=== PATIENT | female | born 1965 | race Caucasian/White ===

== ENCOUNTER 2017-03-10 01:42 | Inpatient (IN) | payer OTHER ==
[2017-03-10] VITALS (10 sets, daily range): BP systolic 102–128; BP diastolic 47–74; PULSE 65–74; RESP 10–20; TEMP 97.9–98.8; O2SAT 95–99
[~2017-03-10] VITALS: Ht 175.3 cm; Wt 87.5 kg
[2017-03-10] MEDS ORDERED: SODIUM CHLOR 0.9% 1000 ML INJ 1,000 ML IV SCH (02:09)
--- NOTE | 2017-03-10 02:13 | PD ---
HPI . Left lower quadrant pain Chief Complaint: left lower quadrant pain Time Seen by Provider: 01:59 Travel History International Travel<30 days: No Contact w/Intl Traveler<30days: No Traveled to known affect area: No History of Present Illness HPI The patient is a 51-year-old female with a history of diverticulitis who complains of the same pain that she has had with her previous episodes of diverticulitis since noon yesterday. She does have nausea without vomiting and diarrhea. She denies any blood in the stool. She denies any fever. She does not have a local primary care physician, she just moved from [place]. Her only abdominal surgery was cholecystectomy, she still has her appendix. [facility] Social History Tobacco Use: No Allergies-Medications (Allergen,Severity, Reaction): Coded Allergies: Demerol (Verified Allergy, Severe, Nausea/Vomiting, 03/10/17) Reported Meds & Prescriptions Reported Meds & Active Scripts Active Review of Systems Except as stated in HPI: all other systems reviewed are Neg Physical Exam Narrative GENERAL: The patient is alert, oriented 3 in moderate to severe distress with her left lower quadrant abdominal pain. Her vital signs are normal. SKIN: Focused skin assessment warm/dry. HEAD: Atraumatic. Normocephalic. EYES: Pupils equal and round. No scleral icterus. No injection or drainage. ENT: No nasal bleeding or discharge. Mucous membranes pink and moist. NECK: Trachea midline. No JVD. CARDIOVASCULAR: Regular rate and rhythm. No murmur appreciated. RESPIRATORY: No accessory muscle use. Clear to auscultation. Breath sounds equal bilaterally. GASTROINTESTINAL: Abdomen soft except for the left lower quadrant which shows some guarding, with exquisite tenderness in the left lower quadrant to direct palpation, nondistended. Hepatic and splenic margins not palpable. MUSCULOSKELETAL: No obvious deformities. No clubbing. No cyanosis. No edema. NEUROLOGICAL: Awake and alert. No obvious cranial nerve deficits. Motor grossly within normal limits. Normal speech. PSYCHIATRIC: Appropriate mood and affect; insight and judgment normal. Data Data Last Documented VS Vital Signs Date Time Temp Pulse Resp B/P Pulse Ox O2 Delivery O2 Flow Rate FiO2 03/10/17 03:29 17 03/10/17 03:12 73 125/57 98 Room Air 03/10/17 01:50 98.2 Orders Complete Blood Count With Diff (03/10/17 02:09) Comprehensive Metabolic Panel (03/10/17 02:09) Lipase (03/10/17 02:09) Ct Abd/Pel W Iv Contrast(Rout) (03/10/17 02:09) Iv Access Insert/Monitor (03/10/17 02:09) Ecg Monitoring (03/10/17 02:09) Oximetry (03/10/17 02:09) Sodium Chloride 0.9% Flush (Ns Flush) (03/10/17 02:15) Morphine Inj (Morphine Inj) (03/10/17 02:15) Ondansetron Inj (Zofran Inj) (03/10/17 02:15) Sodium Chlor 0.9% 1000 Ml Inj (Ns 1000 M (03/10/17 02:09) Sodium Chloride 0.9% Flush (Ns Flush) (03/10/17 02:15) Iohexol 350 Inj (Omnipaque 350 Inj) (03/10/17 02:58) Morphine Inj (Morphine Inj) (03/10/17 03:15) Ondansetron Inj (Zofran Inj) (03/10/17 03:15) Metronidazole 500 Mg Inj (Flagyl 500 Mg (03/10/17 03:15) Levofloxacin 750 Mg Premix Inj (Levaquin (03/10/17 03:15) Admit Order (Ed Use Only) (03/10/17 03:29) Ciprofloxacin 400 Mg Premix (Cipro 400 M (03/10/17 18:00) Metronidazole 500 Mg Inj (Flagyl 500 Mg (03/10/17 14:00) Admit To Inpatient (03/10/17 ) Vital Signs (Adult) Q4H (03/10/17 03:29) Activity Oob Ad Zuly (03/10/17 03:29) Intake + Output ELEONORA.QSHIFT (03/10/17 03:29) Sodium Chlor 0.9% 1000 Ml Inj (Ns 1000 M (03/10/17 03:29) Sodium Chloride 0.9% Flush (Ns Flush) (03/10/17 03:30) Sodium Chloride 0.9% Flush (Ns Flush) (03/10/17 09:00) Ondansetron Inj (Zofran Inj) (03/10/17 03:30) Comprehensive Metabolic Panel (03/11/17 06:00) Complete Blood Count With Diff (03/11/17 06:00) Scd Bilateral/Knee High ELEONORA.BID (03/10/17 03:29) Estuardo Bilateral/Knee High ELEONORA.QSHIFT (03/10/17 03:29) Acetaminophen (Tylenol) (03/10/17 03:30) Acetamin-Hydrocod 325-5 Mg ([place] 5-325 (03/10/17 03:30) Morphine Inj (Morphine Inj) (03/10/17 03:30) Docusate Sodium-Senna (Ema-Colace) (03/10/17 09:00) Magnesium Hydroxide Liq (Milk Of Magnesi (03/10/17 03:30) Sennosides (Senokot) (03/10/17 03:30) Bisacodyl Supp (Dulcolax Supp) (03/10/17 03:30) Lactulose Liq (Lactulose Liq) (03/10/17 03:30) Inpatient Certification (03/10/17 ) Labs Laboratory Tests Test 03/10/17 02:16 White Blood Count 11.9 TH/MM3 Red Blood Count 4.47 MIL/MM3 Hemoglobin 13.8 GM/DL Hematocrit 41.4 % Mean Corpuscular Volume 92.5 FL Mean Corpuscular Hemoglobin 30.8 PG Mean Corpuscular Hemoglobin 33.3 % Concent Red Cell Distribution Width 12.6 % Platelet Count 240 TH/MM3 Mean Platelet Volume 8.4 FL Neutrophils (%) (Auto) 78.1 % Lymphocytes (%) (Auto) 11.7 % Monocytes (%) (Auto) 8.0 % Eosinophils (%) (Auto) 2.0 % Basophils (%) (Auto) 0.2 % Neutrophils # (Auto) 9.3 TH/MM3 Lymphocytes # (Auto) 1.4 TH/MM3 Monocytes # (Auto) 1.0 TH/MM3 Eosinophils # (Auto) 0.2 TH/MM3 Basophils # (Auto) 0.0 TH/MM3 CBC Comment DIFF FINAL Differential Comment Sodium Level 140 MEQ/L Potassium Level 3.8 MEQ/L Chloride Level 105 MEQ/L Carbon Dioxide Level 25.5 MEQ/L Anion Gap 10 MEQ/L Blood Urea Nitrogen 7 MG/DL Creatinine 0.92 MG/DL Estimat Glomerular Filtration 64 ML/MIN Rate Random Glucose 117 MG/DL Calcium Level 8.9 MG/DL Total Bilirubin 0.8 MG/DL Aspartate Amino Transf 12 U/L (AST/SGOT) Alanine Aminotransferase 20 U/L (ALT/SGPT) Alkaline Phosphatase 63 U/L Total Protein 7.3 GM/DL Albumin 3.5 GM/DL Lipase 79 U/L MDM Medical Decision Making Medical Screen Exam Complete: Yes Emergency Medical Condition: Yes Medical Record Reviewed: Yes Interpretation(s) The CBC shows a white count of 11,900 with 78% neutrophils but is otherwise unremarkable. The complete metabolic profile shows a GFR of 64 but is otherwise normal. The lipase is normal. The CT scan shows diverticulitis with prominent fatty induration about the proximal sigmoid colon and some free fluid in the dependent pelvis. No drainable fluid collection is seen. The appendix is identified and has a normal size and the lumen contains gas. Differential Diagnosis Diverticulitis, appendicitis, pyelonephritis, colitis, electrolyte disorder, dehydration Narrative Course The patient has diverticulitis. Her pain is severe and her nausea is persistent. She has now had 8 mg of morphine IV as well as 8 of Zofran IV. The patient is unlikely due to well at home with by mouth medications. The patient will be admitted to the [facility] service for IV fluids, bowel rest, IV antibiotics and IV pain medications. Scripts Hydrocodone-Acetaminophen 10-325 mg Tab1 Tab PO Q4H PRN (PAIN SCALE 1 TO 10) # 10 TAB Prov:Dewey Aparicio MD 03/12/17 Metronidazole (Flagyl)500 Mg [id number] Mg PO TID #42 TAB Ref 0 Prov:Dewey Aparicio MD 03/12/17 Ciprofloxacin 500 Mg [id number] Mg PO BID #28 TAB Ref 0 Prov:Dewey Aparicio MD 03/12/17 Didier Garcias MD Mar 10, 2017 02:13
[2017-03-10] MEDS ORDERED: MORPHINE SULFATE 4 MG/ML INJ IV PUSH ONE ×2 (02:15→03:15)
[2017-03-10] MEDS ORDERED: SODIUM CHLORIDE 0.9% FLUSH 10 ML FLUSH IV FLUSH PRN ×3 (02:15→03:30)
[2017-03-10] MEDS ORDERED: ONDANSETRON HCL 4 MG/2 ML VIAL IVP ONE (02:15)
[2017-03-10 02:41] LABS: AUTOMATED NEUTROPHIL # 9.3 TH/MM3 (1.8-7.7); BASOPHIL % 0.2 % (0.0-2.0); EOSINOPHIL # 0.2 TH/MM3 (0-0.4); HEMATOCRIT 41.4 % (35.0-46.0); HEMO FLAGS DIFF FINAL; LYMPH % 11.7 % (9.0-44.0); LYMPHOCYTE # 1.4 TH/MM3 (1.0-4.8); MEAN CELL VOLUME 92.5 FL (80.0-100.0); MEAN CORPUSCULAR HEMOGLOBIN 30.8 PG (27.0-34.0); MEAN CORPUSCULAR HGB CONC 33.3 % (32.0-36.0); NEUT % 78.1 % (16.0-70.0); PLATELET COUNT 240 TH/MM3 (150-450); RED BLOOD COUNT 4.47 MIL/MM3 (4.00-5.30); RED CELL DISTRIBUTION WIDTH 12.6 % (11.6-17.2); WHITE BLOOD COUNT 11.9 TH/MM3 (4.0-11.0)
[2017-03-10 02:52] LABS: CHLORIDE 105 MEQ/L (98-107); POTASSIUM 3.8 MEQ/L (3.5-5.1); SODIUM (NA) 140 MEQ/L (136-145)
[2017-03-10 02:56] LABS: ANION GAP 10 MEQ/L (5-15); BICARBONATE 25.5 MEQ/L (21.0-32.0); BLOOD UREA NITROGEN 7 MG/DL (7-18)
[2017-03-10] MEDS ORDERED: IOHEXOL 350 MG/ML 10 ML VIAL (for RAD DIAG) IV ONE (02:58)
[2017-03-10 02:59] LABS: ALT (GPT) 20 U/L (10-53); AST (GOT) 12 U/L (15-37); GLOMERULAR FILTRATION RATE 64 ML/MIN (>89)
[2017-03-10 03:01] LABS: TOTAL BILIRUBIN ADULT 0.8 MG/DL (0.2-1.0)
[2017-03-10 03:02] LABS: ALKALINE PHOSPHATASE 63 U/L (45-117)
--- NOTE | 2017-03-10 03:07 | RADRPT ---
EXAM DATE/TIME: 03/10/2017 02:43 [facility] COMPARISON: No previous studies available for comparison. INDICATIONS : Left lower quadrant pain. Nausea. IV CONTRAST: 85 cc Omnipaque 350 (iohexol) IV ORAL CONTRAST: No oral contrast ingested. RADIATION DOSE: 13.87 CTDIvol (mGy) MEDICAL HISTORY : Diverticulitis. SURGICAL HISTORY : Cholecystectomy. ENCOUNTER: Initial ACUITY: 1 day PAIN SCALE: 8/10 LOCATION: Left lower quadrant TECHNIQUE: Volumetric scanning of the abdomen and pelvis was performed. Using automated exposure control and ad justment of the mA and/or kV according to patient size, radiation dose was kept as low as reasonably achievable to obtain optimal diagnostic quality images. DICOM format image data is available electro nically for review and comparison. FINDINGS: LOWER LUNGS: The visualized lower lungs are clear. LIVER: Homogeneous density without lesion. There is no dilation of the biliary tree. Cholecystectomy. SPLEEN: Normal size without lesion. PANCREAS: Within normal limits. KIDNEYS: Normal in size and shape. There is no mass, stone or hydronephrosis. ADRENAL GLANDS: Within normal limits. VASCULAR: There is no aortic aneurysm. BOWEL/MESENTERY: Abnormal appearance to the sigmoid colon with induration of the fat about the proximal sigmoid and a segment of the left measures 6 cm in length. There are several diverticula throughout the sigmoid co alna. No extra luminal gas. The induration extends into the left lower quadrant root of mesentery. No drainable fluid collections. Mild amount of free fluid in the dependent portion of the right pelv is. No dilated loops of small bowel. The appendix is identified in the right lower quadrant, has a normal size, and the lumen contains gas. ABDOMINAL WALL: Within normal limits. RETROPERITONEUM: There is no lymphadenopathy. BLADDER: No wall thickening or mass. REPRODUCTIVE: Within normal limits. INGUINAL: There is no lymphadenopathy or hernia. MUSCULOSKELETAL: Within normal limits for patient age. CONCLUSION: Diverticulitis with prominent fatty induration about the proximal sigmoid colon and some free fluid i n the dependent pelvis. No drainable fluid collection seen. Champ Vidal MD on March 10, 2017 at 3:00 Board Certified Radiologist. This report was verified electronically.
[2017-03-10] MEDS ORDERED: LEVOFLOXACIN 750 MG PREMIX INJ 150 ML IV ONE (03:15)
[2017-03-10] MEDS ORDERED: metroNIDAZOLE 500 MG INJ 100 ML IV ONE (03:15)
[2017-03-10] MEDS ORDERED: ONDANSETRON HCL 4 MG/2 ML VIAL IV ONE (03:15)
[2017-03-10] MEDS ORDERED: SENNOSIDES 8.6 MG TAB PO PRN (03:30)
[2017-03-10] MEDS ORDERED: MAGNESIUM HYDROXIDE SUSP 30 ML CUP PO PRN (03:30)
[2017-03-10] MEDS ORDERED: LACTULOSE SYRUP 20 GM/30 ML CUP PO PRN (03:30)
[2017-03-10] MEDS ORDERED: BISACODYL 10 MG SUPP RECTAL PRN (03:30)
[2017-03-10] MEDS: SODIUM CHLOR 0.9% 1000 ML INJ 1,000 ML IV SCH ×3 (03:38→14:51)
[2017-03-10] MEDS: MORPHINE SULFATE 4 MG/ML INJ IV PRN ×2 (04:49→09:22)
--- NOTE | 2017-03-10 07:37 | HHI.HP ---
[facility] No Primary Care Physician Admission Diagnosis diverticulitis with intractable pain/nausea Diagnoses: (1) Acute diverticulitis Diagnosis: Principal (2) Alcohol use Diagnosis: Principal Chief Complaint: Abdominal pain Travel History International Travel<30 Days: No Contact w/Intl Traveler <30 Da: No Traveled to Known Affected Are: No History of Present Illness Written by Greyson Garcias, acting as scribe for Dr. Manuel on 03/10/17 at 07:26. 51-year-old female with known history of rheumatoid arthritis, Raynaud 's phenomenon, history of recurrent diverticulitis who presented to hospital because of abdominal pain. Patient states that she is in normal state of health until Friday when he started noticing some mild abdominal pain. She did take some Flagyl that she had left over from previous prescription, however she did not improve so she came to the hospital for evaluation. Patient does have a rather complicated history with diverticulitis. She moved down here from [place], [place]. Up there she goes to [place] for her medical needs. Last time she was hospitalized for diverticulitis was 5 years ago. Otherwise, her primary medical doctor usually treats in outpatient setting with Cipro/Flagyl and Vicodin. The patient indicates that she has had surgical evaluations up in [facility] and they have been contemplating doing a sigmoidectomy. When the patient moved down to [place] she is given 2 prescriptions for Flagyl for whenever she gets a flare she can take and treat herself in outpatient setting. Patient states that approximately one month ago she did have a bout of diverticulitis that she took the Flagyl and she was able to treat herself at home. However, this time she did not have a full course of antibiotics, she does not have a primary medical doctor, she just got insurance. And since the pain progressively got worse yesterday afternoon and did not improve she came to the hospital for evaluation. Patient had evaluation done emergency department and CT scan does indicate diverticulitis in the proximal sigmoid colon with prominent fatty induration. Patient states that she has had some hot and cold spells, however no documented fever. She had an episode of diarrhea prior to the discomfort. She denies any constipation, hematochezia, melena. Review of Systems Constitutional: COMPLAINS OF: Chills, DENIES: Diaphoretic episodes, Fatigue, Fever, Weight gain, Weight loss, Dizziness, Change in appetite, Night Sweats Eyes: DENIES: Blurred vision, Diplopia, Eye inflammation, Eye pain, Vision loss , Double Vision Ears, nose, mouth, throat: DENIES: Hearing loss, Nasal discharge, Throat pain, Ear Pain, Running Nose, Sinus Pain Respiratory: DENIES: Apneas, Cough, Snoring, Wheezing, Hemoptysis, Sputum production, Shortness of breath Cardiovascular: DENIES: Chest pain, Palpitations, Syncope, Dyspnea on Exertion , Lower Extremity Edema, Orthopnea Gastrointestinal: COMPLAINS OF: Abdominal pain, Diarrhea, DENIES: Black stools , Bloody stools, Constipation, Nausea, Vomiting, Difficulty Swallowing, Anorexia Musculoskeletal: DENIES: Joint pain, Muscle aches, Stiffness, Joint Swelling, Back pain, Neck pain Neurologic: DENIES: Abnormal gait, Headache, Localized weakness, Paresthesias, Seizures, Speech Problems, Tremor, Poor Balance Past Family Social History Past Medical History Recurrent diverticulitis Rheumatoid arthritis Raynaud's phenomenon Past Surgical History Cholecystectomy LEEP procedure Partial left parotidectomy Reported Medications Reported Meds & Active Scripts Active No Active Prescriptions or Reported Medications Allergies: Coded Allergies: Demerol (Verified Allergy, Severe, Nausea/Vomiting, 03/10/17) Family History Reviewed and significant for sister from heart failure at age 42, brother with heart disease at age 50, mother with diverticulitis, father at age 65 from heart failure Social History Patient smokes three-quarter pack a cigarettes a day since she was 13 years old. She does drink 2 beers daily and a 6 pack on the weekends. Denies any illicit drugs Physical Exam Vital Signs Vital Signs Date Time Temp Pulse Resp B/P Pulse Ox O2 Delivery O2 Flow Rate FiO2 03/10/17 05:00 98.7 65 18 115/74 95 03/10/17 04:16 98.8 71 17 113/52 98 03/10/17 03:29 17 03/10/17 03:12 73 18 125/57 98 Room Air 03/10/17 02:28 17 03/10/17 02:27 67 16 116/57 97 Room Air 03/10/17 02:05 68 18 128/62 98 03/10/17 01:50 98.2 74 20 109/73 99 Physical Exam GENERAL: Well-developed, well-nourished, in moderate distress due to pain. alert and orientated HEENT: Head is normocephalic without any lesions or masses noted. Facial features are symmetric. Eyes: Pupils equal round reactive to light. Extraocular muscles are intact. Conjunctivae were clear. Oropharyngeal: Pharynx without any erythema edema. Tongue is midline without deviation. Buccal mucosa is moist without any masses or lesions NECK: Supple without any masses. Trachea midline no deviation. No JVD, no bruits are appreciated CARDIAC: Regular rhythm, regular rate. S1/S2 are heard. No murmurs gallops or rubs. LUNGS: Clear to auscultation bilaterally. No wheeze, rhonchi or rales. No use of accessory muscles on inspiration or expiration. ABDOMEN: Soft, tenderness noted in the lower abdomen, left worse than right. Nondistended. Bowel sounds heard in all 4 quadrants. No organomegaly or masses. Negative rebound, negative guarding EXTREMITIES: No edema, pulses are equal bilaterally. No cyanosis or clubbing NEUROLOGY: Mood and affect appear appropriate. Cranial nerves II through XII grossly intact. Muscle strength 5/5 in upper and lower extremities bilaterally. Deep tendon reflexes are 2+ in upper and lower extremities bilaterally. Laboratory Laboratory Tests Test 03/10/17 02:16 White Blood Count 11.9 Red Blood Count 4.47 Hemoglobin 13.8 Hematocrit 41.4 Mean Corpuscular Volume 92.5 Mean Corpuscular Hemoglobin 30.8 Mean Corpuscular Hemoglobin 33.3 Concent Red Cell Distribution Width 12.6 Platelet Count 240 Mean Platelet Volume 8.4 Neutrophils (%) (Auto) 78.1 Lymphocytes (%) (Auto) 11.7 Monocytes (%) (Auto) 8.0 Eosinophils (%) (Auto) 2.0 Basophils (%) (Auto) 0.2 Neutrophils # (Auto) 9.3 Lymphocytes # (Auto) 1.4 Monocytes # (Auto) 1.0 Eosinophils # (Auto) 0.2 Basophils # (Auto) 0.0 CBC Comment DIFF FINAL Differential Comment Sodium Level 140 Potassium Level 3.8 Chloride Level 105 Carbon Dioxide Level 25.5 Anion Gap 10 Blood Urea Nitrogen 7 Creatinine 0.92 Estimat Glomerular Filtration 64 Rate Random Glucose 117 Calcium Level 8.9 Total Bilirubin 0.8 Aspartate Amino Transf 12 (AST/SGOT) Alanine Aminotransferase 20 (ALT/SGPT) Alkaline Phosphatase 63 Total Protein 7.3 Albumin 3.5 Lipase 79 Result Diagram: 03/10/1721503/10/17215 Imaging Last Impressions Abdomen/Pelvis CT 03/10/17 0209 Signed Impressions: Service Date/Time: Friday, March 10, 2017 02:43 - CONCLUSION: Diverticulitis with prominent fatty induration about the proximal sigmoid colon and some free fluid in the dependent pelvis. No drainable fluid collection seen. Champ Vidal MD Reviewed by me Assessment and Plan Problem List: (1) Acute diverticulitis ICD Code: K57.92 Status: Acute Plan: Patient with complicated history of recurrent diverticulitis, usually treated in outpatient setting with Cipro, Flagyl, Vicodin. Patient indicates that there has been contemplation of surgical intervention Continue Cipro, Flagyl IV Continue IV fluids Continue pain control Clear liquid diet Gi consult [place] 5 every 4 hours as needed for pain 35 [place] 10 every 4 hours as needed for pain 610 Morphine 2 mg IV every 3 hours as needed for breakthrough pain (2) Alcohol use ICD Code: Z78.9 Status: Chronic Plan: Patient does drink alcohol on a daily basis Monitor for withdrawal symptoms Start thiamine/folic acid Start Ativan as needed for seizures Start Librium as needed for withdrawal symptoms (3) Hyperglycemia ICD Code: R73.9 Status: Acute Plan: Likely stress induced, check hemoglobin A1c. Assessment and Plan GI prophylaxis: PPI DVT prophylaxis: SCD's, Place on Lovenox SQ. This note was transcribed by sweetie Garcias . I, Dr. Dewey Patterson personally performed the history, physical exam, and medical decision making; and confirmed the accuracy of the information in the transcribed note. Authenticated by Dr. Dewey Patterson on 03/10/17 at 8:30. Code Status Full code Discussed Condition With Patient Physician Certification 2 Midnight Certification Type: Admission for Inpatient Services Order for Inpatient Services The services are ordered in accordance with Medicare regulations or non- Medicare payer requirements, as applicable. In the case of services not specified as inpatient-only, they are appropriately provided as inpatient services in accordance with the 2-midnight benchmark. Estimated LOS (days): 2 days is the estimated time the patient will need to remain in the hospital, assuming treatment plan goals are met and no additional complications. Post-Hospital Plan: Not yet determined Greyson Garcias Mar 10, 2017 07:37 Dewey Aparicio MD Mar 10, 2017 12:38
[2017-03-10] MEDS ORDERED: chlordiazePOXIDE 25 MG CAP PO PRN (07:45)
[2017-03-10] MEDS ORDERED: LORazepam 2 MG/ML VIAL IV PUSH PRN (07:45)
[2017-03-10] MEDS: SODIUM CHLORIDE 0.9% FLUSH 10 ML FLUSH IV FLUSH SCH ×2 (09:00→19:38)
[2017-03-10 09:09] LABS: AUTOMATED NEUTROPHIL # 6.8 TH/MM3 (1.8-7.7); BASOPHIL # 0.1 TH/MM3 (0-0.2); BASOPHIL % 0.7 % (0.0-2.0); EOSINOPHIL # 0.2 TH/MM3 (0-0.4); HEMATOCRIT 35.8 % (35.0-46.0); HEMO FLAGS DIFF FINAL; LYMPH % 14.8 % (9.0-44.0); LYMPHOCYTE # 1.4 TH/MM3 (1.0-4.8); MEAN CELL VOLUME 91.2 FL (80.0-100.0); MEAN CORPUSCULAR HEMOGLOBIN 31.4 PG (27.0-34.0); MEAN CORPUSCULAR HGB CONC 34.4 % (32.0-36.0); MONO % 8.7 % (0.0-8.0); NEUT % 73.8 % (16.0-70.0); PLATELET COUNT 211 TH/MM3 (150-450); RED BLOOD COUNT 3.92 MIL/MM3 (4.00-5.30); RED CELL DISTRIBUTION WIDTH 11.8 % (11.6-17.2); WHITE BLOOD COUNT 9.3 TH/MM3 (4.0-11.0)
[2017-03-10] MEDS: ACETAMINOPHEN/HYDROcodone 325 MG/10 MG TAB PO PRN ×2 (09:26→19:49)
[2017-03-10] MEDS: DOCUSATE SODIUM 50 MG/SENNA 8.6 MG TAB PO SCH ×2 (09:26→19:50)
[2017-03-10] MEDS: FOLIC ACID 1 MG TAB PO SCH (09:26)
[2017-03-10] MEDS: THIAMINE HCL 100 MG TAB PO SCH (09:26)
[2017-03-10] MEDS: ONDANSETRON HCL 4 MG/2 ML VIAL IVP PRN ×2 (09:27→19:48)
--- NOTE | 2017-03-10 09:33 | PD.PN.STU ---
Subjective Remarks Patient is a 51 year old female admitted for a severe bout of diverticulitis. She has a history of previous episodes of diverticulitis. Patient is in significant pain this morning, ranked 8/10 on pain scale. Localized to her left lower abdomen. Pain is worse with cough or movement. Last pain medication administration for 4:30am. She denies nausea or vomiting. Had diarrhea yesterday. Denies fevers, muscle aches, night sweats. Her symptoms feel similar to previous diverticulitis episodes but worse this time. Objective Vitals Vital Signs Date Time Temp Pulse Resp B/P Pulse Ox O2 Delivery O2 Flow Rate FiO2 03/10/17 05:00 98.7 65 18 115/74 95 03/10/17 04:16 98.8 71 17 113/52 98 03/10/17 03:29 17 03/10/17 03:12 73 18 125/57 98 Room Air 03/10/17 02:28 17 03/10/17 02:27 67 16 116/57 97 Room Air 03/10/17 02:05 68 18 128/62 98 03/10/17 01:50 98.2 74 20 109/73 99 Result Diagram: 03/10/17 0845 03/10/17 0216 Objective Remarks GENERAL: appears to be in pain laying down in the hospital bed. SKIN: Warm and dry. HEAD: Normocephalic. EYES: No scleral icterus. No injection or drainage. NECK: Supple, trachea midline. No JVD or lymphadenopathy. CARDIOVASCULAR: Regular rate and rhythm without murmurs, gallops, or rubs. RESPIRATORY: Breath sounds equal bilaterally. No accessory muscle use. GASTROINTESTINAL: Abdomen soft, non-tender, nondistended. MUSCULOSKELETAL: No cyanosis, or edema. BACK: Nontender without obvious deformity. No CVA tenderness. Penelope Garcia M3 Mar 10, 2017 09:33
[2017-03-10] MEDS: metroNIDAZOLE 500 MG INJ 100 ML IV SCH ×2 (14:50→22:41)
[2017-03-10] MEDS: ACETAMINOPHEN/HYDROcodone 325 MG/5 MG TAB PO PRN (15:08)
--- NOTE | 2017-03-10 15:46 | PD.PN.STU ---
Subjective Remarks S: Patient is a 51 year old female who presents for GI consult Patient came to the hospital last night complaining of severe sharp abdominal pain in the LLQ but the pain was radiating every where. Today she still has pain in the LLQ, that she grades a 6/10 with no radiation; the pain is worse with movement and coughing and she describes it as a sharp pain She is currently not taking anything but water in her diet. Her last bowel movement was yesterday morning, which she states was loose with mucus. She denies any darkness or red coloration to the stool. She states that she is compliant with a diverticulosis specific diet at home. She denies nausea, vomiting, dysphagia, fever, chills, chest pain, or SOB remaining ROS unremarkable PMH: recurrent diverticulitis: 4 episodes last year; Rheumatoid arthritis, Raynaud's phenomeno; last colonoscopy was 2.5 years ago which showed the top end of moderate diverticulosis PSHx: cholecystectomy; LEEP procedure; partial left parotidectomy FHx: - Sister: at 42 from heart failure - brother: decreased at 50 from heart disease - mother: diverticulitis - father: at 65 from heart failure SHx: - Tobacco: 3/4 pack of cigarettes/day - Alcohol: drinks daily; 2 beers daily and a 6 pack on the weekend Allergy to Demerol Objective Vitals Vital Signs Date Time Temp Pulse Resp B/P Pulse Ox O2 Delivery O2 Flow Rate FiO2 03/10/17 08:45 70 14 114/56 97 03/10/17 05:00 98.7 65 18 115/74 95 03/10/17 04:16 98.8 71 17 113/52 98 03/10/17 03:29 17 03/10/17 03:12 73 18 125/57 98 Room Air 03/10/17 02:28 17 03/10/17 02:27 67 16 116/57 97 Room Air 03/10/17 02:05 68 18 128/62 98 03/10/17 01:50 98.2 74 20 109/73 99 O: General: WDWN, not in acute distress, but appears uncomfortable HEENT: negative Neck: supple; (-) LAD Heart: RRR, nl S1, S2; no murmurs rubs or thrills Lungs: CTA Abdomen: soft; moderate tenderness of the LLQ and umbilical area; nondistended, normal bowel sounds, no HSM detected; mild rebound tenderness upon release, no guarding Ext: no edema or cyanosis Neuro: alert and oriented x 3; no focal deficits Result Diagram: 03/10/17 0845 03/10/17 0216 Other Results Laboratory Tests Test 03/10/17 03/10/17 02:16 08:45 White Blood Count 11.9 TH/MM3 (4.0-11.0) Neutrophils (%) (Auto) 78.1 % 73.8 % (16.0-70.0) (16.0-70.0) Neutrophils # (Auto) 9.3 TH/MM3 (1.8-7.7) Monocytes # (Auto) 1.0 TH/MM3 (0-0.9) Estimat Glomerular Filtration 64 ML/MIN (>89) Rate Random Glucose 117 MG/DL (74-106) Aspartate Amino Transf 12 U/L (15-37) (AST/SGOT) Red Blood Count 3.92 MIL/MM3 (4.00-5.30) Monocytes (%) (Auto) 8.7 % (0.0-8.0) Imaging Last 72 hours Impressions Abdomen/Pelvis CT 03/10/17 0209 Signed Impressions: Service Date/Time: Friday, March 10, 2017 02:43 - CONCLUSION: Diverticulitis with prominent fatty induration about the proximal sigmoid colon and some free fluid in the dependent pelvis. No drainable fluid collection seen. Champ Vidal MD Medications and IVs Current Medications Medications (Trade) Dose Ordered Sig/Diana Route Start Time Stop Time Status Last Admin Ciprofloxacin/ Dextrose 200 ml @ 200 mls/hr Q12H IV 03/10/17 18:00 Metronidazole 100 ml @ 100 mls/hr Q8H IV 03/10/17 14:00 03/10/17 14:50 (NS 1000 ml Inj) 1,000 ml @ 100 mls/hr Q10H IV 03/10/17 03:29 03/10/17 14:51 (NS Flush) 2 ml UNSCH PRN IV FLUSH 03/10/17 03:30 (NS Flush) 2 ml BID IV FLUSH 03/10/17 09:00 (Zofran Inj) 4 mg Q6H PRN IVP 03/10/17 03:30 03/10/17 09:27 (Tylenol) 650 mg Q6H PRN PO 03/10/17 03:30 ([place] 5-325 Mg) 1 tab Q4H PRN PO 03/10/17 03:30 03/10/17 15:08 (Morphine Inj) 2 mg Q3H PRN IV 03/10/17 03:30 03/10/17 09:22 (Ema-Colace) 1 tab BID PO 03/10/17 09:00 03/10/17 09:26 (Milk Of Magnesia Liq) 30 ml Q12H PRN PO 03/10/17 03:30 (Senokot) 17.2 mg Q12H PRN PO 03/10/17 03:30 (Dulcolax Supp) 10 mg DAILY PRN RECTAL 03/10/17 03:30 (Lactulose Liq) 30 ml DAILY PRN PO 03/10/17 03:30 ([place] 10-325 Mg) 1 tab Q4H PRN PO 03/10/17 07:30 03/10/17 09:26 (Vitamin B1) 100 mg DAILY PO 03/10/17 09:00 03/10/17 09:26 (Folate) 1 mg DAILY PO 03/10/17 09:00 03/10/17 09:26 (Ativan Inj) 2 mg Q1HR PRN IV PUSH 03/10/17 07:45 (Librium) 25 mg TID PRN PO 03/10/17 07:45 A/P Assessment and Plan A: Acute diverticulitis P: 1. continue Cipro/Flagyl 2. continue supportive care with pain management and IV fluids 3. can start on clear liquid diet tomorrow if the pain is improved 4. consider surgical consult as she has had multiple episodes in the last year This Dr. Zuniga Patient was seen and examined Agree with above Continue with current supportive care Monitor labs We will monitor progress over the next couple of days if no improvement we will repeat abdominal imaging this patient did exert quite a bit of rebound and referred tenderness Also would recommend evaluation by colorectal surgery as it is most likely patient will require surgical resection of her sigmoid once she has healed Valerie Frazier Mar 10, 2017 15:46 Benedict Zuniga MD Mar 10, 2017 16:43
[2017-03-10] MEDS: CIPROFLOXACIN 400 MG PREMIX 200 ML IV SCH (17:16)
[2017-03-11] VITALS: BP 97/49; PULSE 63; RESP 16; TEMP 99.6; O2SAT 96
[2017-03-11] MEDS: ACETAMINOPHEN 325 MG TAB PO PRN ×2 (00:48→11:18)
[2017-03-11 04:00] VITALS: BP 104/46; PULSE 60; RESP 16; TEMP 98.3; O2SAT 95
[2017-03-11 05:14] LABS: BASOPHIL % 0.2 % (0.0-2.0); EOSINOPHIL # 0.2 TH/MM3 (0-0.4); EOSINOPHIL % 2.7 % (0.0-4.0); HEMATOCRIT 33.1 % (35.0-46.0); HEMO FLAGS DIFF FINAL; LYMPH % 21.4 % (9.0-44.0); LYMPHOCYTE # 1.5 TH/MM3 (1.0-4.8); MEAN CELL VOLUME 91.9 FL (80.0-100.0); MEAN CORPUSCULAR HEMOGLOBIN 30.7 PG (27.0-34.0); MEAN CORPUSCULAR HGB CONC 33.4 % (32.0-36.0); MONO % 7.4 % (0.0-8.0); NEUT % 68.3 % (16.0-70.0); PLATELET COUNT 205 TH/MM3 (150-450); RED BLOOD COUNT 3.61 MIL/MM3 (4.00-5.30); RED CELL DISTRIBUTION WIDTH 11.9 % (11.6-17.2); WHITE BLOOD COUNT 7.2 TH/MM3 (4.0-11.0)
[2017-03-11 05:43] LABS: CHLORIDE 109 MEQ/L (98-107); POTASSIUM 3.9 MEQ/L (3.5-5.1); SODIUM (NA) 142 MEQ/L (136-145)
[2017-03-11] MEDS: CIPROFLOXACIN 400 MG PREMIX 200 ML IV SCH ×2 (05:48→18:19)
[2017-03-11] MEDS: metroNIDAZOLE 500 MG INJ 100 ML IV SCH ×3 (06:00→22:09)
[2017-03-11 06:08] LABS: ALKALINE PHOSPHATASE 46 U/L (45-117); ALT (GPT) 13 U/L (10-53); ANION GAP 7 MEQ/L (5-15); AST (GOT) 8 U/L (15-37); BICARBONATE 26.4 MEQ/L (21.0-32.0); BLOOD UREA NITROGEN 5 MG/DL (7-18); GLOMERULAR FILTRATION RATE 97 ML/MIN (>89); TOTAL BILIRUBIN ADULT 0.4 MG/DL (0.2-1.0)
[2017-03-11 09:00] VITALS: BP 100/51; PULSE 67; RESP 14; TEMP 98.8; O2SAT 99
[2017-03-11] MEDS: SODIUM CHLORIDE 0.9% FLUSH 10 ML FLUSH IV FLUSH SCH ×2 (09:00→20:02)
[2017-03-11] MEDS: DOCUSATE SODIUM 50 MG/SENNA 8.6 MG TAB PO SCH ×2 (09:00→20:02)
--- NOTE | 2017-03-11 09:24 | PD.PN.STU ---
Subjective Remarks Patient feeling much better. Pain today /10, still localized to left side. Vomited x1 yesterday after eating broth. Admits feeling nauseous. Decreased appetite. No BM. Urinating and ambulating well. Hx of bouts of diverticulitis 4x over past year. Objective Vitals Vital Signs Date Time Temp Pulse Resp B/P Pulse Ox O2 Delivery O2 Flow Rate FiO2 03/11/17 04:00 98.3 60 16 104/46 95 03/11/17 00:00 99.6 63 16 97/49 96 03/10/17 20:00 98.4 74 16 105/49 95 03/10/17 16:00 98.5 65 12 102/47 99 03/10/17 12:30 97.9 66 10 108/51 99 I/O 03/10/17 03/10/17 03/10/17 03/11/17 03/11/17 03/11/17 06:59 14:59 22:59 06:59 14:59 22:59 Intake Total 1740 ml 1000 ml Balance 1740 ml 1000 ml Intake Oral 300 ml 200 ml IV Total 1440 ml 800 ml # Voids 1 4 2 # Bowel Movements 0 Result Diagram: 03/11/17 0430 03/11/17 0430 Objective Remarks GENERAL: well appearing female in no acute distress. SKIN: Warm and dry. HEAD: Normocephalic. EYES: No scleral icterus. No injection or drainage. NECK: Supple, trachea midline. No JVD or lymphadenopathy. CARDIOVASCULAR: Regular rate and rhythm without murmurs, gallops, or rubs. RESPIRATORY: Breath sounds equal bilaterally. No accessory muscle use. GASTROINTESTINAL: Abdomen soft, nondistended. Pain elicited with palpation of left lower quadrant. A/P Assessment and Plan Acute diverticulitis 1. continue IV Cipro/Flagyl 2. continue supportive care with IV fluids. Pain is tolerable without pain medications. 3. Continue clear liquid diet. 4. Surgical consult with history of 4 bouts of diverticulitis over past year. Penelope Garcia M3 Mar 11, 2017 09:24
[2017-03-11] MEDS: SODIUM CHLOR 0.9% 1000 ML INJ 1,000 ML IV SCH ×2 (09:29→19:29)
--- NOTE | 2017-03-11 10:52 | PD.PN.STU ---
Subjective Remarks S. patient is a 51 year old female who presents today for GI follow up. She states that she's feeling better today. She grades her LLQ abdominal pain a 3/10 and it's more of a dull pain now. The pain is still worse with movement and coughing, but not as bad She does have nausea and has vomited once yesterday after eating beef broth. She is now on PO meds, and states she would like to go home. She does have a headache, and she hasn't been on anything for pain since 4am this morning. She denies fever, chills, chest pain, and SOB. Remaining ROS unremarkable patient was seen and examined, agree with above note Objective Vitals Vital Signs Date Time Temp Pulse Resp B/P Pulse Ox O2 Delivery O2 Flow Rate FiO2 03/11/17 04:00 98.3 60 16 104/46 95 03/11/17 00:00 99.6 63 16 97/49 96 03/10/17 20:00 98.4 74 16 105/49 95 03/10/17 16:00 98.5 65 12 102/47 99 03/10/17 12:30 97.9 66 10 108/51 99 I/O 03/10/17 03/10/17 03/10/17 03/11/17 03/11/17 03/11/17 07:00 15:00 23:00 07:00 15:00 23:00 Intake Total 1740 ml 1000 ml Balance 1740 ml 1000 ml Intake Oral 300 ml 200 ml IV Total 1440 ml 800 ml # Voids 1 4 2 # Bowel Movements 0 O: Gen: WDWN, not in acute distress HEENT: negative Neck: supple (-) LAD Heart: RRR, nl S1, S2, no murmurs Lungs: CTA Abdomen: soft, with tenderness upon palpation of the LLQ and umbilical region. normal bowel sounds, no HSM; no rebound or guarding Ext: no edema or cyanosis Neuro: alert and oriented x 3; no focal deficits patient was examined by me, less abdominal pain doing better, wants to go home Result Diagram: 03/11/17 0430 03/11/17 0430 Other Results Laboratory Tests Test 03/10/17 03/10/17 03/11/17 02:16 08:45 04:30 White Blood Count 11.9 TH/MM3 (4.0-11.0) Neutrophils (%) (Auto) 78.1 % 73.8 % (16.0-70.0) (16.0-70.0) Neutrophils # (Auto) 9.3 TH/MM3 (1.8-7.7) Monocytes # (Auto) 1.0 TH/MM3 (0-0.9) Estimat Glomerular Filtration 64 ML/MIN (>89) Rate Random Glucose 117 MG/DL (74-106) Aspartate Amino Transf 12 U/L (15-37) 8 U/L (15-37) (AST/SGOT) Red Blood Count 3.92 MIL/MM3 3.61 MIL/MM3 (4.00-5.30) (4.00-5.30) Monocytes (%) (Auto) 8.7 % (0.0-8.0) Hemoglobin 11.1 GM/DL (11.6-15.3) Hematocrit 33.1 % (35.0-46.0) Chloride Level 109 MEQ/L (98-107) Blood Urea Nitrogen 5 MG/DL (7-18) Calcium Level 8.1 MG/DL (8.5-10.1) Total Protein 5.7 GM/DL (6.4-8.2) Albumin 2.6 GM/DL (3.4-5.0) Imaging Last 72 hours Impressions Abdomen/Pelvis CT 03/10/17 0209 Signed Impressions: Service Date/Time: Friday, March 10, 2017 02:43 - CONCLUSION: Diverticulitis with prominent fatty induration about the proximal sigmoid colon and some free fluid in the dependent pelvis. No drainable fluid collection seen. Champ Vidal MD Medications and IVs Current Medications Medications (Trade) Dose Ordered Sig/Diana Route Start Time Stop Time Status Last Admin Ciprofloxacin/ Dextrose 200 ml @ 200 mls/hr Q12H IV 03/10/17 18:00 03/11/17 05:48 Metronidazole 100 ml @ 100 mls/hr Q8H IV 03/10/17 14:00 03/10/17 22:41 (NS 1000 ml Inj) 1,000 ml @ 100 mls/hr Q10H IV 03/10/17 03:29 03/10/17 00:00 (NS Flush) 2 ml UNSCH PRN IV FLUSH 03/10/17 03:30 (NS Flush) 2 ml BID IV FLUSH 03/10/17 09:00 (Zofran Inj) 4 mg Q6H PRN IVP 03/10/17 03:30 03/10/17 19:48 (Tylenol) 650 mg Q6H PRN PO 03/10/17 03:30 03/11/17 00:48 ([place] 5-325 Mg) 1 tab Q4H PRN PO 03/10/17 03:30 03/10/17 15:08 (Morphine Inj) 2 mg Q3H PRN IV 03/10/17 03:30 03/10/17 09:22 (Ema-Colace) 1 tab BID PO 03/10/17 09:00 03/10/17 09:26 (Milk Of Magnesia Liq) 30 ml Q12H PRN PO 03/10/17 03:30 (Senokot) 17.2 mg Q12H PRN PO 03/10/17 03:30 (Dulcolax Supp) 10 mg DAILY PRN RECTAL 03/10/17 03:30 (Lactulose Liq) 30 ml DAILY PRN PO 03/10/17 03:30 ([place] 10-325 Mg) 1 tab Q4H PRN PO 03/10/17 07:30 03/10/17 19:49 (Vitamin B1) 100 mg DAILY PO 03/10/17 09:00 03/10/17 09:26 (Folate) 1 mg DAILY PO 03/10/17 09:00 03/10/17 09:26 (Ativan Inj) 2 mg Q1HR PRN IV PUSH 03/10/17 07:45 (Librium) 25 mg TID PRN PO 03/10/17 07:45 A/P Assessment and Plan A: Acute diverticulitis- improving P: 1. continue Cipro/Flagyl 2. continue supportive care with IV fluids. Pain is tolerable without pain medications. 3. continue clear liquid diet, Can consider advancing diet to full liquid diet 4. Surgical consult due to recurrent episodes of diverticulitis over the past year diverticulitis fifth time consider resection, patient is thinking about that, continue ABx Valerie Frazier Mar 11, 2017 10:52 Dave Paula MD Mar 11, 2017 18:18
[2017-03-11] MEDS: THIAMINE HCL 100 MG TAB PO SCH (11:18)
[2017-03-11] MEDS: FOLIC ACID 1 MG TAB PO SCH (11:18)
[2017-03-11 12:30] VITALS: BP 112/60; PULSE 68; RESP 12; TEMP 97.9; O2SAT 99
--- NOTE | 2017-03-11 15:04 | HHI.PR ---
Subjective Remarks Patient states pain is much improved had nausea last night and earlier with one episode of vomiting denies fevers or chills tolerated clear liquid diet this am Episode of hypotension with a SBP in the 90's Objective Vitals Vital Signs Date Time Temp Pulse Resp B/P Pulse Ox O2 Delivery O2 Flow Rate FiO2 03/11/17 09:00 98.8 67 14 100/51 99 03/11/17 04:00 98.3 60 16 104/46 95 03/11/17 00:00 99.6 63 16 97/49 96 03/10/17 20:00 98.4 74 16 105/49 95 03/10/17 16:00 98.5 65 12 102/47 99 I/O 03/10/17 03/10/17 03/10/17 03/11/17 03/11/17 03/11/17 07:00 15:00 23:00 07:00 15:00 23:00 Intake Total 1740 ml 1000 ml Balance 1740 ml 1000 ml Intake Oral 300 ml 200 ml IV Total 1440 ml 800 ml # Voids 1 4 2 # Bowel Movements 0 Result Diagram: 03/11/17 0430 03/11/17 0430 Imaging Last Impressions Abdomen/Pelvis CT 03/10/17 0209 Signed Impressions: Service Date/Time: Friday, March 10, 2017 02:43 - CONCLUSION: Diverticulitis with prominent fatty induration about the proximal sigmoid colon and some free fluid in the dependent pelvis. No drainable fluid collection seen. Champ Vidal MD Objective Remarks GENERAL: Well-developed, well-nourished, in moderate distress due to pain. alert and orientated HEENT: Head is normocephalic without any lesions or masses noted. Facial features are symmetric. Eyes: Pupils equal round reactive to light. Extraocular muscles are intact. Conjunctivae were clear. Oropharyngeal: Pharynx without any erythema edema. Tongue is midline without deviation. Buccal mucosa is moist without any masses or lesions NECK: Supple without any masses. Trachea midline no deviation. No JVD, no bruits are appreciated CARDIAC: Regular rhythm, regular rate. S1/S2 are heard. No murmurs gallops or rubs. LUNGS: Clear to auscultation bilaterally. No wheeze, rhonchi or rales. No use of accessory muscles on inspiration or expiration. ABDOMEN: Soft, tenderness noted in the lower abdomen, left worse than right. Nondistended. Bowel sounds heard in all 4 quadrants. No organomegaly or masses. Negative rebound, negative guarding EXTREMITIES: No edema, pulses are equal bilaterally. No cyanosis or clubbing NEUROLOGY: Mood and affect appear appropriate. Cranial nerves II through XII grossly intact. Muscle strength 5/5 in upper and lower extremities bilaterally. Deep tendon reflexes are 2+ in upper and lower extremities bilaterally. Medications and IVs Current Medications Medications (Trade) Dose Ordered Sig/Diana Route Start Time Stop Time Status Last Admin Ciprofloxacin/ Dextrose 200 ml @ 200 mls/hr Q12H IV 03/10/17 18:00 03/11/17 05:48 Metronidazole 100 ml @ 100 mls/hr Q8H IV 03/10/17 14:00 03/11/17 14:20 (NS 1000 ml Inj) 1,000 ml @ 100 mls/hr Q10H IV 03/10/17 03:29 03/10/17 00:00 (NS Flush) 2 ml UNSCH PRN IV FLUSH 03/10/17 03:30 03/11/17 14:21 (NS Flush) 2 ml BID IV FLUSH 03/10/17 09:00 (Zofran Inj) 4 mg Q6H PRN IVP 03/10/17 03:30 03/10/17 19:48 (Tylenol) 650 mg Q6H PRN PO 03/10/17 03:30 03/11/17 11:18 ([place] 5-325 Mg) 1 tab Q4H PRN PO 03/10/17 03:30 03/10/17 15:08 (Morphine Inj) 2 mg Q3H PRN IV 03/10/17 03:30 03/10/17 09:22 (Ema-Colace) 1 tab BID PO 03/10/17 09:00 03/10/17 09:26 (Milk Of Magnesia Liq) 30 ml Q12H PRN PO 03/10/17 03:30 (Senokot) 17.2 mg Q12H PRN PO 03/10/17 03:30 (Dulcolax Supp) 10 mg DAILY PRN RECTAL 03/10/17 03:30 (Lactulose Liq) 30 ml DAILY PRN PO 03/10/17 03:30 ([place] 10-325 Mg) 1 tab Q4H PRN PO 03/10/17 07:30 03/10/17 19:49 (Vitamin B1) 100 mg DAILY PO 03/10/17 09:00 03/11/17 11:18 (Folate) 1 mg DAILY PO 03/10/17 09:00 03/11/17 11:18 (Ativan Inj) 2 mg Q1HR PRN IV PUSH 03/10/17 07:45 (Librium) 25 mg TID PRN PO 03/10/17 07:45 A/P Problem List: (1) Acute diverticulitis ICD Code: K57.92 Status: Acute Plan: Patient with complicated history of recurrent diverticulitis, usually treated in outpatient setting with Cipro, Flagyl, Vicodin. Patient indicates that there has been contemplation of surgical intervention Continue Cipro, Flagyl IV Continue pain control Clear liquid diet Gi consult [place] 5 every 4 hours as needed for pain 35 [place] 10 every 4 hours as needed for pain 610 Morphine 2 mg IV every 3 hours as needed for breakthrough pain 03/11 DC IV fluids. Advance diet as tolerated. Diverticulitis improving. (2) Alcohol use ICD Code: Z78.9 Status: Chronic Plan: Patient does drink alcohol on a daily basis Monitor for withdrawal symptoms Continue thiamine and folic acid, Ativan when necessary seizures, hearing nausea for withdrawal symptom. No evidence of alcohol withdrawal at this time. (3) Hyperglycemia ICD Code: R73.9 Status: Acute Plan: Likely stress induced, check hemoglobin A1c. 03/11 blood sugars stable. Assessment and Plan GI prophylaxis - add PPI DVT prophylaxis: SCDs, Lovenox cutaneously. Discharge Planning Possible discharge in a.m. pending clinical improvement. Dewey Aparicio MD Mar 11, 2017 15:04
[2017-03-11] MEDS ORDERED: ENOXAPARIN SODIUM 40 MG/0.4 ML SYRINGE SQ SCH (16:00)
[2017-03-11 16:48] VITALS: BP 111/54; PULSE 67; RESP 12; TEMP 98.1; O2SAT 100
[2017-03-11] MEDS: ACETAMINOPHEN/HYDROcodone 325 MG/5 MG TAB PO PRN (18:33)
[2017-03-11 20:00] VITALS: BP 107/50; PULSE 71; RESP 16; TEMP 98.6; O2SAT 98
[2017-03-11] MEDS: FAMOTIDINE 20 MG TAB PO SCH (20:02)
[2017-03-11] MEDS: ACETAMINOPHEN/HYDROcodone 325 MG/10 MG TAB PO PRN (22:10)
[2017-03-12] VITALS: BP 101/51; PULSE 66; RESP 18; TEMP 97.8; O2SAT 97
[2017-03-12 04:00] VITALS: BP 111/57; PULSE 72; RESP 14; TEMP 98.3; O2SAT 99
[2017-03-12 05:24] LABS: CHLORIDE 110 MEQ/L (98-107); POTASSIUM 4.1 MEQ/L (3.5-5.1); SODIUM (NA) 145 MEQ/L (136-145)
[2017-03-12 05:28] LABS: ANION GAP 7 MEQ/L (5-15); BICARBONATE 28.4 MEQ/L (21.0-32.0); BLOOD UREA NITROGEN 6 MG/DL (7-18); MAGNESIUM 2.3 MG/DL (1.5-2.5)
[2017-03-12 05:31] LABS: ALT (GPT) 15 U/L (10-53); AST (GOT) 10 U/L (15-37); GLOMERULAR FILTRATION RATE 105 ML/MIN (>89)
[2017-03-12 05:33] LABS: TOTAL BILIRUBIN ADULT 0.3 MG/DL (0.2-1.0)
[2017-03-12 05:34] LABS: ALKALINE PHOSPHATASE 47 U/L (45-117)
[2017-03-12 05:51] LABS: AUTOMATED NEUTROPHIL # 2.4 TH/MM3 (1.8-7.7); BASOPHIL % 0.7 % (0.0-2.0); EOSINOPHIL # 0.3 TH/MM3 (0-0.4); EOSINOPHIL % 5.6 % (0.0-4.0); HEMATOCRIT 32.1 % (35.0-46.0); HEMO FLAGS DIFF FINAL; LYMPH % 31.9 % (9.0-44.0); LYMPHOCYTE # 1.5 TH/MM3 (1.0-4.8); MEAN CELL VOLUME 92.1 FL (80.0-100.0); MEAN CORPUSCULAR HEMOGLOBIN 30.8 PG (27.0-34.0); MEAN CORPUSCULAR HGB CONC 33.5 % (32.0-36.0); MONO % 9.5 % (0.0-8.0); NEUT % 52.3 % (16.0-70.0); PLATELET COUNT 219 TH/MM3 (150-450); RED BLOOD COUNT 3.49 MIL/MM3 (4.00-5.30); RED CELL DISTRIBUTION WIDTH 11.8 % (11.6-17.2); WHITE BLOOD COUNT 4.6 TH/MM3 (4.0-11.0)
[2017-03-12] MEDS: metroNIDAZOLE 500 MG INJ 100 ML IV SCH (06:18)
[2017-03-12] MEDS: ACETAMINOPHEN 325 MG TAB PO PRN (06:19)
[2017-03-12] MEDS: CIPROFLOXACIN 400 MG PREMIX 200 ML IV SCH (06:19)
[2017-03-12 08:00] VITALS: BP 114/53; PULSE 62; RESP 16; TEMP 97.8; O2SAT 98
[2017-03-12] MEDS: FOLIC ACID 1 MG TAB PO SCH (08:13)
[2017-03-12] MEDS: THIAMINE HCL 100 MG TAB PO SCH (08:13)
[2017-03-12] MEDS: FAMOTIDINE 20 MG TAB PO SCH (08:14)
[2017-03-12] MEDS: DOCUSATE SODIUM 50 MG/SENNA 8.6 MG TAB PO SCH (08:18)
[2017-03-12] MEDS: SODIUM CHLORIDE 0.9% FLUSH 10 ML FLUSH IV FLUSH SCH (08:18)
[2017-03-12] MEDS ORDERED: CIPR500T2 PO (12:34)
[2017-03-12] MEDS ORDERED: METR-1 PO (12:34)
--- NOTE | 2017-03-12 12:34 | HHI.DCPOC ---
Discharge Care Plan Diagnosis: (1) Acute diverticulitis (2) Hyperglycemia (3) Alcohol use Goals to Promote Your Health * To prevent worsening of your condition and complications * To maintain your health at the optimal level Directions to Meet Your Goals Take your medications as prescribed Follow your dietary instruction Follow activity as directed Keep your appointments as scheduled Take your immunizations and boosters as scheduled If your symptoms worsen call your PCP, if no PCP go to Urgent Care Center or Emergency Room Smoking is Dangerous to Your Health. Avoid second hand smoke Call the 24-hour hour crisis hotline for domestic abuse at Dewey Apariico MD Mar 12, 2017 12:34
[2017-03-12] MEDS ORDERED: HYDR-3583 PO (12:40)
--- NOTE | 2017-03-12 12:42 | HHI.DS ---
Discharge Summary Admission Date Mar 10, 2017 at 03:31 Discharge Date: Mar 12, 2017 Admitting Diagnosis diverticulitis with intractable pain/nausea (1) Acute diverticulitis ICD Code: K57.92 (2) Alcohol use ICD Code: Z78.9 (3) Hyperglycemia ICD Code: R73.9 Procedures none Brief History - From Admission Written by Greyson Garcias, acting as scribe for Dr. Manuel on 03/10/17 at 07:26. 51-year-old female with known history of rheumatoid arthritis, Raynaud 's phenomenon, history of recurrent diverticulitis who presented to hospital because of abdominal pain. Patient states that she is in normal state of health until Friday when he started noticing some mild abdominal pain. She did take some Flagyl that she had left over from previous prescription, however she did not improve so she came to the hospital for evaluation. Patient does have a rather complicated history with diverticulitis. She moved down here from [place], [place]. Up there she goes to [facility] for her medical needs. Last time she was hospitalized for diverticulitis was 5 years ago. Otherwise, her primary medical doctor usually treats in outpatient setting with Cipro/Flagyl and Vicodin. The patient indicates that she has had surgical evaluations up in [facility] and they have been contemplating doing a sigmoidectomy. When the patient moved down to [place] she is given 2 prescriptions for Flagyl for whenever she gets a flare she can take and treat herself in outpatient setting. Patient states that approximately one month ago she did have a bout of diverticulitis that she took the Flagyl and she was able to treat herself at home. However, this time she did not have a full course of antibiotics, she does not have a primary medical doctor, she just got insurance. And since the pain progressively got worse yesterday afternoon and did not improve she came to the hospital for evaluation. Patient had evaluation done emergency department and CT scan does indicate diverticulitis in the proximal sigmoid colon with prominent fatty induration. Patient states that she has had some hot and cold spells, however no documented fever. She had an episode of diarrhea prior to the discomfort. She denies any constipation, hematochezia, melena. CBC/BMP: 03/12/17 0423 03/12/17 0423 Significant Findings Laboratory Tests Test 03/10/17 03/10/17 03/11/17 03/12/17 02:16 08:45 04:30 04:23 White Blood Count 11.9 TH/MM3 (4.0-11.0) Neutrophils (%) (Auto) 78.1 % 73.8 % (16.0-70.0) (16.0-70.0) Neutrophils # (Auto) 9.3 TH/MM3 (1.8-7.7) Monocytes # (Auto) 1.0 TH/MM3 (0-0.9) Estimat Glomerular Filtration 64 ML/MIN (>89) Rate Random Glucose 117 MG/DL (74-106) Aspartate Amino Transf 12 U/L (15-37) 8 U/L (15-37) 10 U/L (15-37) (AST/SGOT) Red Blood Count 3.92 MIL/MM3 3.61 MIL/MM3 3.49 MIL/MM3 (4.00-5.30) (4.00-5.30) (4.00-5.30) Monocytes (%) (Auto) 8.7 % (0.0-8.0) 9.5 % (0.0-8.0) Hemoglobin 11.1 GM/DL 10.8 GM/DL (11.6-15.3) (11.6-15.3) Hematocrit 33.1 % 32.1 % (35.0-46.0) (35.0-46.0) Chloride Level 109 MEQ/L 110 MEQ/L (98-107) (98-107) Blood Urea Nitrogen 5 MG/DL (7-18) 6 MG/DL (7-18) Calcium Level 8.1 MG/DL 8.4 MG/DL (8.5-10.1) (8.5-10.1) Total Protein 5.7 GM/DL 6.0 GM/DL (6.4-8.2) (6.4-8.2) Albumin 2.6 GM/DL 2.7 GM/DL (3.4-5.0) (3.4-5.0) Eosinophils (%) (Auto) 5.6 % (0.0-4.0) Imaging Last Impressions Abdomen/Pelvis CT 03/10/17 0209 Signed Impressions: Service Date/Time: Friday, March 10, 2017 02:43 - CONCLUSION: Diverticulitis with prominent fatty induration about the proximal sigmoid colon and some free fluid in the dependent pelvis. No drainable fluid collection seen. Champ Vidal MD PE at Discharge GENERAL: Well-developed, well-nourished, in moderate distress due to pain. alert and orientated HEENT: Head is normocephalic without any lesions or masses noted. Facial features are symmetric. Eyes: Pupils equal round reactive to light. Extraocular muscles are intact. Conjunctivae were clear. Oropharyngeal: Pharynx without any erythema edema. Tongue is midline without deviation. Buccal mucosa is moist without any masses or lesions NECK: Supple without any masses. Trachea midline no deviation. No JVD, no bruits are appreciated CARDIAC: Regular rhythm, regular rate. S1/S2 are heard. No murmurs gallops or rubs. LUNGS: Clear to auscultation bilaterally. No wheeze, rhonchi or rales. No use of accessory muscles on inspiration or expiration. ABDOMEN: Soft, tenderness noted in the lower abdomen, left worse than right. Nondistended. Bowel sounds heard in all 4 quadrants. No organomegaly or masses. Negative rebound, negative guarding EXTREMITIES: No edema, pulses are equal bilaterally. No cyanosis or clubbing NEUROLOGY: Mood and affect appear appropriate. Cranial nerves II through XII grossly intact. Muscle strength 5/5 in upper and lower extremities bilaterally. Deep tendon reflexes are 2+ in upper and lower extremities bilaterally. Pt Condition on Discharge: Stable Discharge Disposition: Discharge Home Discharge Time: <= 30 minutes Discharge Instructions DIET: Follow Instructions for: As Tolerated, No Restrictions Activities you can perform: Regular-No Restrictions Follow up Referrals: Surgical - 2 Weeks with Rod Dockery MD New Medications: Ciprofloxacin (Ciprofloxacin) 500 Mg Tab 500 MG PO BID Infection #28 Ref 0 TAB Metronidazole (Flagyl) 500 Mg Tab 500 MG PO TID Infection #42 Ref 0 TAB Dewey Aparicio MD Mar 12, 2017 12:42
--- NOTE | 2017-03-12 17:09 | PD.CONS ---
cc: Rod Dockery MD HPI Service General Surgery Consult Requested By Dr. Manuel Reason for Consult Recurrent diverticulitis Primary Care Physician No Primary Care Physician History of Present Illness This is a 51 year old female with a past medical history of recurrent diverticulitis and Rheumatoid arthritis with four episodes of acute diverticulitis last year and this being the first episode this calender year. The patient complains of LLQ abdominal pain. A CT abd/pelvis was obtained and showed diverticulitis with inflammation; without any drainable fluid collection. She recently moved to the [facility]. She was established with a surgeon in [place] prior to moving. A General Surgery consultation has been requested for evaluation of recurrent acute diverticulitis. Review of Systems Constitutional: COMPLAINS OF: Fatigue, Chills, Change in appetite Endocrine: DENIES: Polydipsia, Polyuria, Polyphagia Eyes: DENIES: Diplopia Ears, nose, mouth, throat: DENIES: Hearing loss Respiratory: DENIES: Cough Cardiovascular: DENIES: Chest pain Gastrointestinal: COMPLAINS OF: Abdominal pain Genitourinary: DENIES: Urinary incontinence Musculoskeletal: DENIES: Muscle aches Integumentary: DENIES: Abnormal pigmentation Hematologic/lymphatic: DENIES: Bruising Immunologic/allergic: DENIES: Eczema Neurologic: DENIES: Headache, Localized weakness Psychiatric: DENIES: Mood changes, Depression, Hallucinations Past Family Social History Past Medical History Recurrent diverticulitis Rheumatoid arthritis Raynaud's phenomenon Past Surgical History Cholecystectomy LEEP procedure Partial left parotidectomy Reported Medications None Allergies: Coded Allergies: Demerol (Verified Allergy, Severe, Nausea/Vomiting, 03/10/17) Family History Non contributory Social History + Tob---3/4 ppds + ETOH--- social; not daily Denies illicit drug use Just recently moved to [place] from [place] Physical Exam Vital Signs Vital Signs Date Time Temp Pulse Resp B/P Pulse Ox O2 Delivery O2 Flow Rate FiO2 03/12/17 08:00 97.8 62 16 114/53 98 03/12/17 07:19 16 03/12/17 04:00 98.3 72 14 111/57 99 03/12/17 00:00 97.8 66 18 101/51 97 03/11/17 20:00 98.6 71 16 107/50 98 Physical Exam GENERAL: 51 year old female resting in bed in no acute distress. SKIN: Warm and dry. HEAD: Atraumatic. Normocephalic. EYES: Pupils equal and round. No scleral icterus. No injection or drainage. ENT: No nasal bleeding or discharge. Mucous membranes pink and moist. NECK: Trachea midline. CARDIOVASCULAR: Regular rate and rhythm. RESPIRATORY: No accessory muscle use. Clear to auscultation. Breath sounds equal bilaterally. GASTROINTESTINAL: Abdomen soft, nondistended. Mild LLQ tenderness with palpation. MUSCULOSKELETAL: Extremities without clubbing, cyanosis, or edema. No obvious deformities. NEUROLOGICAL: Awake and alert. No obvious cranial nerve deficits. Motor grossly within normal limits. Five out of 5 muscle strength in the arms and legs. Normal speech. PSYCHIATRIC: Appropriate mood and affect; insight and judgment normal. Laboratory Laboratory Tests Test 03/12/17 04:23 White Blood Count 4.6 Red Blood Count 3.49 Hemoglobin 10.8 Hematocrit 32.1 Mean Corpuscular Volume 92.1 Mean Corpuscular Hemoglobin 30.8 Mean Corpuscular Hemoglobin 33.5 Concent Red Cell Distribution Width 11.8 Platelet Count 219 Mean Platelet Volume 8.3 Neutrophils (%) (Auto) 52.3 Lymphocytes (%) (Auto) 31.9 Monocytes (%) (Auto) 9.5 Eosinophils (%) (Auto) 5.6 Basophils (%) (Auto) 0.7 Neutrophils # (Auto) 2.4 Lymphocytes # (Auto) 1.5 Monocytes # (Auto) 0.4 Eosinophils # (Auto) 0.3 Basophils # (Auto) 0.0 CBC Comment DIFF FINAL Differential Comment Sodium Level 145 Potassium Level 4.1 Chloride Level 110 Carbon Dioxide Level 28.4 Anion Gap 7 Blood Urea Nitrogen 6 Creatinine 0.60 Estimat Glomerular Filtration 105 Rate Random Glucose 91 Calcium Level 8.4 Phosphorus Level 3.1 Magnesium Level 2.3 Total Bilirubin 0.3 Aspartate Amino Transf 10 (AST/SGOT) Alanine Aminotransferase 15 (ALT/SGPT) Alkaline Phosphatase 47 Total Protein 6.0 Albumin 2.7 Result Diagram: 03/12/17 0423 03/12/173 Assessment and Plan Assessment and Plan 51 year old female with recurrent episodes of acute diverticulitis -Advance to low residue diet -Pain controlled -PO antibiotics -Patient will follow up in the office with Dr. Dockery in about 2 weeks -She is going to obtain her records from [place] and bring with her to appointment -She understands that we will plan for elective procedure to remove the diseased area -Once inflammation decreased she would be less likely to have colostomy bag placed which is best case scenario -Patient understands fully; All questions were answered -I gave her our office information -Thank you for very much for this consultation; we will follow patient in the office Discussed Condition With Gracie Willingham Ms. Mar 12, 2017 17:09
[2017-03-12 21:24] LABS: HEMOGLOBIN A1a 1.4 %; HEMOGLOBIN A1b 0.9 %; HEMOGLOBIN Ao 85.4 %; HEMOGLOBIN F 1.3 %; HEMOGLOBIN LA1C 1.3 %; HEMOGLOBIN P3 3.3 %
== END 2017-03-12 13:15 | disposition home or self-care (01) | DRG 392 ==
LOC: PHED 01:42 → PHEDA 03:31 → PHICU 04:28
PROVIDERS: ADMIT Hospitalist; ATTEND Hospitalist
DX: K57.92 Diverticulitis of intestine, part unspecified, without perforation or abscess without bleeding (principal); I95.9 Hypotension, unspecified; F17.210 Nicotine dependence, cigarettes, uncomplicated; I73.00 Raynaud's syndrome without gangrene; M06.9 Rheumatoid arthritis, unspecified; R73.9 Hyperglycemia, unspecified; R11.2 Nausea with vomiting, unspecified; Z82.49 Family history of ischemic heart disease and other diseases of the circulatory system; Z84.89 Family history of other specified conditions; Z88.5 Allergy status to narcotic agent
CPT/HCPCS: 74177; 80053; 83036; 83690; 83735; 84100; 85025; 96374; 96375; 96376; J0744; J1956; J2270; J2405; J7030; Q9967

== ENCOUNTER 2017-09-13 11:40 | Emergency (ER) | payer OTHER ==
[~2017-09-13] VITALS: Ht 177.8 cm; Wt 85.0 kg
[~2017-09-13 11:40] MED LIST: CIPR500T2 PO; HYDR-3583 PO; METR-1 PO
[2017-09-13 11:45] VITALS: BP 127/68; PULSE 68; RESP 16; TEMP 97.8; O2SAT 98
[2017-09-13] MEDS ORDERED: PANT20TA2 PO (11:53)
[2017-09-13] MEDS ORDERED: TRAM50TA PO (11:53)
[2017-09-13] MEDS ORDERED: methylPREDNISolone SOD SUCC 125 MG/2 ML VIAL IM ONE (12:30)
[2017-09-13] MEDS ORDERED: ORPHENADRINE INJ 60 MG/2 ML AMP IM ONE (12:30)
--- NOTE | 2017-09-13 12:43 | PD ---
HPI Chief Complaint: Musculoskeletal Complaint Time Seen by Provider: 12:43 Travel History International Travel<30 days: No Contact w/Intl Traveler<30days: No Traveled to known affect area: No History of Present Illness HPI 52 y female with a history of rheumatoid arthritis presents to the ED with back pain for 2 hours. States she bent over to flower picker some butter from the refrigerator and felt a 'pop'. States she then felt pain radiating to her hips, bilaterally. Patient points to her sacroiliac joints and gluteus regions for her pain. States her pain is mild to moderate, stabbing and constant at this point. Denies fever, chills, history of IV drug use, personal history of cancer , saddle anesthesia, weakness, loss of bowel or bladder function. States that she just completed a course of steroids for her rheumatoid arthritis. PFSH Past Medical History Autoimmune Disease: Yes (RA) Cardiovascular Problems: Yes (HEART MURMUR) Diminished Hearing: No Diverticulitis: Yes Reproductive: Yes (OVARIAN CYSTS) ?: Not : 2 Para: 2 Past Surgical History Cholecystectomy: Yes Gynecologic Surgery: Yes (CERVICAL SCRAPING) Other Surgery: Yes (PAROTIDECTOMY IN RIGHT NECK) Social History Alcohol Use: Yes (2 BEERS DAILY; 6 PACK ON WEEKENDS) Tobacco Use: Yes Substance Use: No Allergies-Medications (Allergen,Severity, Reaction): Coded Allergies: meperidine (Unverified Allergy, Severe, Nausea/Vomiting, 09/13/17) Reported Meds & Prescriptions Reported Meds & Active Scripts Active Robaxin (Methocarbamol) 500 Mg Tab 500 Mg PO TID 3 Days Prednisone 20 Mg Tab 20 Mg PO DAILY 7 Days Reported Tramadol (Tramadol HCl) 50 Mg Tab Unknown Dose PO Q4H PRN Pantoprazole (Pantoprazole Sodium) 20 Mg Tab Unknown Dose PO DAILY Review of Systems Except as stated in HPI: all other systems reviewed are Neg Physical Exam Narrative GENERAL: Well-nourished, well-developed patient, in mild distress SKIN: Focused skin assessment warm/dry. HEAD: Normocephalic. EYES: No scleral icterus. No injection or drainage. NECK: Supple, trachea midline. No JVD or lymphadenopathy. No midline tenderness CARDIOVASCULAR: Regular rate and rhythm without murmurs, gallops, or rubs. RESPIRATORY: Breath sounds equal bilaterally. No accessory muscle use. MUSCULOSKELETAL: No cyanosis, or edema. TTP over left sacroiliac joint. Mild TTP to lower lumbar region midline Lower extremities neurovascularly intact. BACK: Nontender without obvious deformity. No CVA tenderness. Data Data Last Documented VS Vital Signs Date Time Temp Pulse Resp B/P (MAP) Pulse Ox O2 Delivery O2 Flow Rate FiO2 09/13/17 11:45 97.8 68 16 127/68 (87) 98 Orders Orders Spine, Lumbar - Ltd (Ap & Lat) (09/13/17 ) Methylprednisolone So Succ Inj (Solumedr (09/13/17 12:30) Orphenadrine Inj (Norflex Inj) (09/13/17 12:30) Ed Discharge Order (09/13/17 13:50) [facility] Medical Decision Making Medical Screen Exam Complete: Yes Emergency Medical Condition: Yes Differential Diagnosis Sciatica, lumbago, muscle spasms Narrative Course 52 y female with a history of rheumatoid arthritis presents to the ED with back pain for 2 hours. States she bent over to flower picker some butter from the refrigerator and felt a 'pop'. States she then felt pain radiating to her hips, bilaterally. Patient points to her sacroiliac joints and gluteus regions for her pain. States her pain is mild to moderate, stabbing and constant at this point. Denies fever, chills, history of IV drug use, personal history of cancer , saddle anesthesia, weakness, loss of bowel or bladder function. States that she just completed a course of steroids for her rheumatoid arthritis. Vital signs stable. Physical exam findings consistent with sciatica. Ordered x-ray for patient reassurance and to ensure no overt fractures as patient does take multiple courses of prednisone and has rheumatoid arthritis. Last Impressions Lumbar Spine X-Ray 09/13/17 0000 Signed Impressions: Service Date/Time: Wednesday, September 13, 2017 13:08 - CONCLUSION: Mild marginal osteophytes. Daniel Ramsey MD Patient received slight Medrol and Norflex in the emergency department today. Patient will be discharged with Robaxin and prednisone. Advised to use caution as prednisone may contribute to fractures. Advised to watch red flag symptoms. Follow-up primary care physician within 2-3 days. Return to the emergency department for worsening or persistent symptoms. Diagnosis Primary Impression: Lumbago Qualified Codes: M54.5 - Low back pain Referrals: Primary Care Physician Additional Instructions: Perform light stretches of the lower back and legs, and alternate heat and ice packs. If you develop increased pain, weakness, fever, chills, or bowel or bladder issues, return to the ED for further treatment and evaluation. Follow up with your primary care physician in 2-3 days. Scripts Methocarbamol (Robaxin) 500 Mg Tab 500 MG PO TID for Muscle Spasm for 3 Days, TAB 0 Refills Prov: Lizzeth Moreno 09/13/17 Prednisone (Prednisone) 20 Mg Tab 20 MG PO DAILY for 7 Days, #7 TAB 0 Refills Prov: Lizzeth Moreno 09/13/17 Disposition: 01 DISCHARGE HOME Condition: Stable Lizzeth Moreno Sep 13, 2017 12:43
--- NOTE | 2017-09-13 13:46 | RADRPT ---
EXAM DATE/TIME: 09/13/2017 13:08 [facility] COMPARISON: No previous studies available for comparison. INDICATIONS : Bent over to picker feeder something, sudden onset of low back pain MEDICAL HISTORY : None. SURGICAL HISTORY : None. ENCOUNTER: Initial ACUITY: 1 day PAIN SCORE: 8/10 LOCATION: Bilateral low back FINDINGS: Two view examination was performed. There are five non-rib bearing vertebral bodies. The vertebral bodies are in normal alignment without evidence of subluxation or scoliosis. The disc spaces are jason ntained. Mild anterior marginal osteophytes are seen at the L1-L2, L4 and L5 levels. The pedicles ar e intact. Bony mineralization is normal. No fracture is identified. Clips are seen in the right upp er quadrant. CONCLUSION: Mild marginal osteophytes. Daniel Ramsey MD on September 13, 2017 at 13:43 Board Certified Radiologist. This report was verified electronically.
[2017-09-13] MEDS ORDERED: ROBA500T PO (13:49)
[2017-09-13] MEDS ORDERED: PRED20 PO (13:49)
== END 2017-09-13 14:08 | disposition home or self-care (01) ==
LOC: PHEFT 11:40
DX: M54.5 Low back pain (principal); M06.9 Rheumatoid arthritis, unspecified; R01.1 Cardiac murmur, unspecified; Z87.19 Personal history of other diseases of the digestive system; Z72.0 Tobacco use; Z79.899 Other long term (current) drug therapy
CPT/HCPCS: 72100; 96372; 99284; J2360; J2930

== ENCOUNTER 2018-02-09 11:03 | Emergency (ER) | payer OTHER ==
[~2018-02-09] VITALS: Ht 177.8 cm; Wt 87.0 kg
[~2018-02-09 11:03] MED LIST changes: -CIPR500T2 PO; -HYDR-3583 PO; -METR-1 PO; +PANT20TA2 PO; +PRED20 PO; +ROBA500T PO; +TRAM50TA PO
[2018-02-09 11:10] VITALS: BP 153/56; PULSE 66; RESP 16; TEMP 97.7; O2SAT 97
[2018-02-09] MEDS ORDERED: PENI500T PO (11:59)
--- NOTE | 2018-02-09 12:00 | PD ---
HPI Chief Complaint: Oral / Dental Pain or Problem Time Seen by Provider: 11:53 Travel History International Travel<30 days: No Contact w/Intl Traveler<30days: No Traveled to known affect area: No History of Present Illness HPI 52-year-old female with left lower dental pain 2 days. She has a fractured and decayed tooth at the site of the pain. She noticed mild facial swelling yesterday. No difficulty swallowing. No fever chills. Symptom severity is mild to moderate. Aggravated by hot and cold liquids and chewing. PFSH Past Medical History Autoimmune Disease: Yes (RA) Cardiovascular Problems: Yes (HEART MURMUR) Diminished Hearing: No Diverticulitis: Yes Reproductive: Yes (OVARIAN CYSTS) Influenza Vaccination: Yes ?: Not : 2 Para: 2 Past Surgical History Cholecystectomy: Yes Gynecologic Surgery: Yes (CERVICAL SCRAPING) Other Surgery: Yes (PAROTIDECTOMY IN RIGHT NECK) Social History Alcohol Use: Yes (BEER ON WEEKENDS) Tobacco Use: Yes (1/2 PPD) Substance Use: No Allergies-Medications (Allergen,Severity, Reaction): Coded Allergies: meperidine (Verified Allergy, Severe, Nausea/Vomiting, 02/09/18) Reported Meds & Prescriptions Reported Meds & Active Scripts Active Review of Systems Except as stated in HPI: all other systems reviewed are Neg General / Constitutional: No: Fever Eyes: No: Visual changes HENT: Positive: Dental Difficulties Cardiovascular: No: Chest Pain or Discomfort Respiratory: No: Shortness of Breath Gastrointestinal: No: Abdominal Pain Genitourinary: No: Dysuria Physical Exam Narrative GENERAL: Alert and well-appearing 52-year-old female SKIN: Warm and dry. HEAD: Normocephalic. EYES: No scleral icterus. No injection or drainage. ENT: Widespread dental caries. Decayed and fractured tooth #19 with mild swelling and erythema at the gumline. No swelling to the floor the mouth. Uvula is midline. Airways patent. NECK: Supple, trachea midline. No lymphadenopathy. Can freely move the neck. CARDIOVASCULAR: Regular rate and rhythm RESPIRATORY: Breath sounds equal bilaterally. No accessory muscle use. GASTROINTESTINAL:nondistended. Data Data Last Documented VS Vital Signs Date Time Temp Pulse Resp B/P (MAP) Pulse Ox O2 Delivery O2 Flow Rate FiO2 02/09/18 11:10 97.7 66 16 153/56 (88) 97 MDM Medical Decision Making Medical Screen Exam Complete: Yes Emergency Medical Condition: Yes Differential Diagnosis Dental abscess, dental caries, dental fracture Narrative Course 52-year-old female here with dental pain and localized dental infection. She will be treated with antibiotics and instructed to follow-up with her dentist Diagnosis Primary Impression: Dental infection Referrals: Dentist Additional Instructions: Medication as directed. Ibuprofen 800 mg every 6 hours as needed for pain. Follow-up with her dentist. Scripts Penicillin V Potassium (Penicillin V Potassium) 500 Mg Tab 500 MG PO Q6H for Infection for 7 Days, #28 TAB 0 Refills Prov: Kenna Lemus 02/09/18 Disposition: 01 DISCHARGE HOME Condition: Stable Kenna Lemus February 09, 2018 12:00
== END 2018-02-09 12:06 | disposition home or self-care (01) ==
LOC: PHEFT 11:03
DX: K04.7 Periapical abscess without sinus (principal); K02.9 Dental caries, unspecified; M06.9 Rheumatoid arthritis, unspecified; F17.200 Nicotine dependence, unspecified, uncomplicated
CPT/HCPCS: 99283

== ENCOUNTER 2018-03-04 08:08 | Emergency (ER) | payer OTHER ==
[~2018-03-04] VITALS: Ht 177.8 cm; Wt 89.0 kg
[~2018-03-04 08:08] MED LIST changes: -PANT20TA2 PO; +PENI500T PO; -PRED20 PO; -ROBA500T PO; -TRAM50TA PO
[2018-03-04 08:12] VITALS: BP 149/73; PULSE 71; RESP 16; TEMP 98.3; O2SAT 97
[2018-03-04] MEDS ORDERED: NAPR500T2 PO (09:12)
[2018-03-04] MEDS ORDERED: CYCL10TA PO (09:12)
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
[2018-03-04] MEDS ORDERED: ACETAMINOPHEN/HYDROcodone 325 MG/5 MG TAB PO ONE (09:45)
[2018-03-04] MEDS ORDERED: ORPHENADRINE INJ 60 MG/2 ML AMP IM ONE (09:45)
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
[2018-03-04] MEDS ORDERED: NORC5TAB PO (10:57)
[2018-03-04] MEDS ORDERED: ROBA750T PO (10:57)
== END 2018-03-04 11:09 | disposition home or self-care (01) ==
LOC: PHEFT 08:08
DX: M54.5 Low back pain (principal); V43.53XA Car driver injured in collision with pick-up truck in traffic accident, initial encounter; Y92.410 Unspecified street and highway as the place of occurrence of the external cause; M06.9 Rheumatoid arthritis, unspecified; I73.00 Raynaud's syndrome without gangrene; N83.209 Unspecified ovarian cyst, unspecified side; F17.210 Nicotine dependence, cigarettes, uncomplicated; Z88.8 Allergy status to other drugs, medicaments and biological substances; Z79.899 Other long term (current) drug therapy
CPT/HCPCS: 72131; 96372; 99283; J2360